=== PATIENT | female | born 1980 | race Caucasian/White ===

== ENCOUNTER 2018-02-13 19:21 | Emergency (ER) | payer OTHER ==
[~2018-02-13] VITALS: Ht 152.4 cm; Wt 63.6 kg
[2018-02-13 19:24] VITALS: TEMP 37.1; Ht 152.4 cm; Wt 63.6 kg
[2018-02-13] MEDS ORDERED: ACETAMINOPHEN 500 MG TAB PO STA (19:39)
[2018-02-13] MEDS ORDERED: CEPHALEXIN MONOHYDRATE 250 MG CAP PO STA (19:39)
[2018-02-13] MEDS ORDERED: CEPHALEXIN 500MG HOME PACK 1 EA BTL PO STA (19:39)
[2018-02-13] MEDS ORDERED: OXYCODONE HCL IR 5 MG TAB (IMMEDIATE RELEASE) PO STA (19:39)
[2018-02-13] MEDS ORDERED: IBUPROFEN 800 MG TAB PO STA (19:39)
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
[2018-02-13] MEDS ORDERED: BACITRACIN OINT 15 GM TUBE EXT ONE (19:45)
[2018-02-13] MEDS ORDERED: OXYCODONE IR HOME PACK PO ONE (19:45)
[2018-02-13] MEDS ORDERED: IBUP-1451 PO (19:51)
[2018-02-13] MEDS ORDERED: LITH1TAB PO (20:12)
[2018-02-13] MEDS ORDERED: TRAZ50TA35 PO (20:16)
[2018-02-13] MEDS ORDERED: LAMO200T35 PO (20:16)
[2018-02-13] MEDS ORDERED: DIPHTHERIA/TETANUS/PERTUSSIS 0.5 ML SYR/VIAL IM. ONE (20:45)
[2018-02-13 20:48] VITALS: BP 138/87; PULSE 78; O2SAT 98
[2018-02-15] MEDS ORDERED: OXYC-57 PO (10:36)
[2018-02-15] MEDS ORDERED: CEPH500C2 PO (10:36)
== END 2018-02-13 20:51 | disposition home or self-care (01) ==
LOC: C.EDB 19:23
DX: T23.261A Burn of second degree of back of right hand, initial encounter (principal); T24.211A Burn of second degree of right thigh, initial encounter; X10.2XXA Contact with fats and cooking oils, initial encounter; Z88.8 Allergy status to other drugs, medicaments and biological substances; Z23 Encounter for immunization